=== PATIENT | female | born 1980 | race Caucasian/White ===

== ENCOUNTER → 2021-03-12 | Outpatient (CLI) | payer OTHER, BC ==
--- NOTE | 2021-03-12 12:11 | KCIC ---
Examination: MRI of the left ankle without contrast HISTORY: History of left ankle pain COMPARISON: None available Technique: Multiplanar, multisequence MR imaging of the left ankle performed without contrast. FINDINGS: There is moderate thickened appearance of the Achilles tendon tendon distally measuring 1.9 cm in AP dimension with mild increased signal identified in the Achilles tendon likely severe tendinopathy. Th e attachment of the plantar fascia to the inferior to the calcaneus grossly appears intact. The visualized anterior extensor compartment tendons, flexor tendons grossly appears intact There is mild increased signal identified in the posterior longus tendon with surrounding mild fluid likely tendinopathy with tenosynovitis. The alignment of the tarsal bones grossly appears unremarkabl e. The anterior, posterior tibiofibular, talofibular ligament appears intact. The deltoid ligament appea rs intact. Fat is present within the sinus tarsi. IMPRESSION: 1. Moderate thickened appearance of the Achilles tendon distally with mild increased signal identifi ed in the Achilles tendon likely severe tendinopathy. 2. Mild tendinopathy of the peroneus longus tendon with surrounding mild fluid likely tenosynovitis. Electronically signed by: Ric Massey MD (03/12/2021 12:08 PM) [id number]
== END ==
LOC: KCIC MRI 10:04
PROVIDERS: ATTEND Orthopaedic Surgery
DX: M76.62 Achilles tendinitis, left leg (principal); M25.572 Pain in left ankle and joints of left foot
CPT/HCPCS: 73721

== ENCOUNTER → 2022-03-12 | Outpatient (CLI) | payer BC, OTHER ==
--- NOTE | 2022-03-12 17:09 | KCIC ---
Exam Date: 03/12/2022 2:15 PM MRI LEFT LOWER EXTREMITY JOINT WITHOUT Indication: Reason: INTERNAL DEREANGEMENT / Spl. Instructions: / History: Medial and posterior pain x 2 months. Prev PCL recon.. TECHNIQUE: Routine multiplanar MR imaging of the knee was performed without contrast. FINDINGS: Postoperative changes of posterior cruciate ligament reconstruction are noted with an intact PCL andrea t. Mild increased signal at the proximal PCL graft could be postoperative or could represent a mild sprain. There is a posterior horn root tear of the medial meniscus. The posterior horn root of the lateral meniscus appears slightly irregular and with abnormal signal s uggesting complex tearing/fraying. The anterior cruciate ligament, medial collateral ligament, and lateral collateral ligament complex a re intact. Patellofemoral extensor mechanism and popliteus tendon are within normal limits. Tricompartment chondral thinning is noted with multifocal partial thickness chondral defects. No lar ge full-thickness chondral defect is identified. Tricompartment osteophytes are noted. Bone marrow demonstrates benign signal on all sequences. No a cute fracture is seen. Physiologic joint fluid is present. There is a very small popliteal cyst. IMPRESSION: Mild increased signal at the proximal PCL graft could be postoperative or could represent a mild spra in. PCL graft is otherwise intact. Posterior horn root tear of the medial meniscus. Abnormal signal and irregularity of the posterior horn of the lateral meniscus suggests complex teari ng/fraying. Tricompartment partial thickness chondral loss. No large full-thickness chondral defect is identifie d. Electronically signed by: Zaheer Reese MD (03/12/2022 5:06 PM) [id number]
== END ==
LOC: KCIC MRI 14:02
PROVIDERS: ATTEND Orthopaedic Surgery Foot and Ankle Surgery
DX: S83.242A Other tear of medial meniscus, current injury, left knee, initial encounter (principal); M25.762 Osteophyte, left knee; M71.22 Synovial cyst of popliteal space [Baker], left knee; M23.92 Unspecified internal derangement of left knee; M13.862 Other specified arthritis, left knee; M23.52 Chronic instability of knee, left knee; M22.42 Chondromalacia patellae, left knee; X58.XXXA Exposure to other specified factors, initial encounter; Y93.89 Activity, other specified; Y92.89 Other specified places as the place of occurrence of the external cause; Y99.8 Other external cause status
CPT/HCPCS: 73721